=== PATIENT | female | born 1990 | race Caucasian/White ===

== ENCOUNTER 2020-06-29 06:08 | Inpatient (IN) ==
[2020-06-29] MEDS ORDERED: LIDOCAINE HCL 50 ML VIAL PERI PRN (06:17)
[2020-06-29] MEDS ORDERED: OXYTOCIN/0.9 % SODIUM CHLORIDE 30 UNITS/500 ML BAG IV ONE ×2 (06:17→19:11)
[2020-06-29] MEDS ORDERED: RINGER'S SOLUTION,LACTATED 1,000 ML IV ONE (06:17)
[2020-06-29] MEDS ORDERED: BUTORPHANOL TARTRATE 2 MG/ML VIAL IV PRN ×2 (06:17)
[2020-06-29] MEDS ORDERED: ONDANSETRON 4 MG TAB.RAPDIS PO PRN (06:17)
[2020-06-29] MEDS: RINGER'S SOLUTION,LACTATED 1,000 ML IV PRN ×2 (07:00→14:35)
--- NOTE | 2020-06-29 08:19 | HP ---
Chief Complaint - Chief Complaint Date of Service: 06/29/20 Time of Service: 08:18 Chief Complaint: Medical IOL due to post dates History of Present Illness: 30 year old at 40w 4d who presented to L&D for a medical IOL due to post due date. She reports ctx on pitocin. Denies vb or lof. Fetus is active. Medical History (Last Reviewed 06/29/20 @ 14:28 by Josephine Lockett MD) Acne History of PCOS Varicose vein of leg IUGR (intrauterine growth restriction) delivered at 37 weeks-MIOL Insulin resistance Surgical History: Surgical History (Last Reviewed 06/29/20 @ 14:28 by Josephine Lockett MD) No pertinent past surgical history Family History: Family History (Last Reviewed 06/29/20 @ 14:28 by Josephine Lockett MD) Mother Hypertension Grandfather Cancer colon Father Heart disease tachycardia Social History: (Last Reviewed 06/29/20 @ 14:28 by Josephine Lockett MD) Social History: adopted: No Marital status: household members: spouse current occupational status: unemployed current occupation: homemaker Highest level of school completed/degree received: high school graduate Service: No Tobacco: Smoking Status: Never smoker Alcohol: alcohol intake: current alcohol intake frequency: a few times a week details: none with Substance Use: substance use type: does not use Review Of Systems (GEN) - Review of Systems Generalized/Overall Review: Present: No Symptoms Reported Misc: All systems neg except as marked Allergies/Adverse Reactions: Allergies Allergy/AdvReac Type Severity Reaction Status Date / Time No Known Allergies Allergy Verified 06/20/20 10:30 Home Medications: HOME MEDICATIONS Vit No.128/Iron/FA [ Formula] 1 ea PO DAILY 10/07/13 [Last Taken 06/28/20 12:00] metformin 1,000 mg 24 hr tablet,extended release 1,000 mg PO DAILY tab 12/22/19 [Last Taken 06/28/20 12:00] ferrous sulfate 300 mg (60 mg iron)/5 mL oral liquid 60 mg PO DAILY 03/20/20 [Last Taken Unknown] Exam - Exam Vital Signs: 37 84 99% 127/75 18 Constitutional: Present: Alert, Oriented x3, Cooperative ENT Exam: Present: hearing grossly normal Eye Exam: bilateral eye: normal inspection Breasts: Present: Exam deferred Respiratory: Present: lungs clear, normal breath sounds, no respiratory distress Cardiovascular/Chest: Present: regular rate, rhythm Abdomen: Present: soft, nontender, nondistended /Rectal: Present: Exam deferred Extremity: Present: non-tender, no calf tenderness Skin Exam: Present: normal color, warm/dry, no cyanosis Neurologic: Present: alert, normal mood/affect, oriented x 3 Appearance: Present: appropriate appearance, appropriate insight, neat, no memory impairment Eye contact: Present: cooperative, good eye contact, normal speech Thoughts: Present: normal thought pattern Diagnostic Studies: Laboratory Results Blood Type B Positive 06/29/20 06:30 Antibody Screen Negative 06/29/20 06:30 Assessment/Plan - Narrative Narrative: 30 year old at 40w 4d 1. Medical IOL: on pitocin, allow for spontaneous AROM per patient request 2. GBS negative: prophylaxis not indicated - Assessment/Plan (1) Encounter for planned induction of labor Problem: Acute (2) 40 weeks gestation of Problem: Acute
[2020-06-29] MEDS ORDERED: ONDANSETRON HCL/PF 2 MG/ML VIAL IV ONE (13:37)
[2020-06-29] MEDS ORDERED: NALOXONE HCL 1 MG/1 ML SYRG IV PRN (16:24)
[2020-06-29] MEDS ORDERED: BUPIVACAINE HCL/0.9 % NACL/PF 250 ML EP PRN (16:24)
[2020-06-29] MEDS ORDERED: ONDANSETRON HCL/PF 2 MG/ML VIAL IV PRN (16:24)
[2020-06-29] MEDS ORDERED: fentaNYL CITRATE/PF 50 MCG/ML AMPUL IT SCH (16:30)
--- NOTE | 2020-06-29 16:30 | ANES ---
Anesthesia Pre Procedure Eval Vitals/Labs: Last Vital Signs Temp 37.0 C 06/29/20 06:15 Pulse 84 06/29/20 06:15 Resp 18 06/29/20 06:15 BP 127/75 06/29/20 06:15 Pulse Ox 98 06/29/20 06:15 HOME MEDICATIONS Vit No.128/Iron/FA [ Formula] 1 ea PO DAILY 10/07/13 [Last Taken 06/28/20 12:00] metformin 1,000 mg 24 hr tablet,extended release 1,000 mg PO DAILY tab 12/22/19 [Last Taken 06/28/20 12:00] ferrous sulfate 300 mg (60 mg iron)/5 mL oral liquid 60 mg PO DAILY 03/20/20 [La st Taken Unknown] Allergies/Adverse Reactions: Allergies Allergy/AdvReac Type Severity Reaction Status Date / Time No Known Allergies Allergy Verified 06/20/20 10:30 - Planned Procedure Planned Procedure: medical induction for post dates 40+4 Medication List Reviewed:: Yes Allergies Verified: Yes Medical History (Last Reviewed 06/29/20 @ 16:29 by Veto Knox CRNA) Acne History of PCOS Varicose vein of leg IUGR (intrauterine growth restriction) delivered at 37 weeks-MIOL Insulin resistance Surgical History (Last Reviewed 06/29/20 @ 16:29 by Veto Knox CRNA) No pertinent past surgical history Family History (Last Reviewed 06/29/20 @ 16:29 by Veto Knox CRNA) Mother Hypertension Grandfather Cancer colon Father Heart disease tachycardia - Family Anesthesia History Family History:: no untoward family reactions to anesthesia, no familial bleeding tendencies, no family history of clotting disorders, no family history of premature - Airway/Neck/Teeth Within Normal Limits:: Yes Teeth Condition: intact Neck Exam: full range of motion Mallampatti Score: 2 Thyromental (T-M) distance: > 6 cm Mandibulo Hyoid distance: > 3 cm - Respiratory Respiratory Physical: lungs clear Smoking Status: Never smoker Sleep Apnea currently treated: No Sleep Apnea by current assessment: No - Cardiovascular Tolerate Activity: Fair Heart Sounds: S1 & S2, Regular - Gastrointestinal NPO since: 2400 - Anesthesia Assessment and Plan ASA Class: PS, II, E Anesthesia Type Plan: Epidural - CSE for labor analgesia
--- NOTE | 2020-06-29 16:51 | ANES ---
Post Anesthesia Discharge - Transfer of Care Transfer of Care handoff given to nurse: Yes - Discharge from PACU Discharge from PACU when meets criteria: Yes - Comfortable post CSE
--- NOTE | 2020-06-29 16:53 | ANES ---
Anesthesia Procedure Note Procedure Note: ANESTHESIA PROCEDURE NOTE Date of Procedure: 06/29/2020 Time of procedure: 1630. Performed by: HOMERO Preciado CRNA, MSN Track Car Operator: Celeste Butts RN. Preprocedure diagnosis: Active labor, labor pain. Post procedure diagnosis: Same. Procedure:Epidural for labor analgesia L3-4. Indications: Labor pain. Findings: See below. Details of the procedure: The patient was placed on the side of the bed in sitting positionand prepped with DuraPrep then draped in a sterile fashion. Lidocaine 1% was infiltrated to the skin and subcutaneous tissues at the level of the L3-4 interspace. An 18-gauge Touhy needle was used to approach the epidural space with loss of resistance technique. Once loss of resistance was achieved a 27-gauge spinal needle was passed through the epidural needle and CSF was contacted. After CSF returned, 20 mcg of fentanyl was injected in the spinal needle was removed the epidural catheter was then threaded approximately 4 cm in the epidural needle was removed. The catheter was taped in place and after careful aspiration 3 mL of 1.5% lidocaine with 1-200,000 epinephrine was injected without change in maternal heart rate or sensorium. . EBL: Minimal. Fluids: N/A. Specimen: N/A. Post procedure condition: The patient tolerated the procedure well with good relief. No complications were noted. Thank you for this consultation. Veto Knox CRNA, HOMERO, MSN
--- NOTE | 2020-06-29 17:33 | PN ---
Demond Note - Interim Date: 06/29/20 Time: 17:31 Narrative: 06/29/20 17:31 Patient comfortable with epidural cvx /-2 AROM for clear fluid NST cat 1
--- NOTE | 2020-06-29 17:45 | ANES ---
Post Anesthesia Assessment - Vital Signs Vitals: Last Vital Signs Temp 37.0 C 06/29/20 06:15 Pulse 84 06/29/20 06:15 Resp 18 06/29/20 06:15 BP 127/75 06/29/20 06:15 Pulse Ox 98 06/29/20 06:15 Airway Patency: Normal - Mental Status Level Of Consciousness: Awake, Alert, Appropriate - Pain Level Pain Score: 0 - N/V Assessment Nausea/Vomiting Presence: None Dehydration:: No
[2020-06-29] MEDS ORDERED: HYDROCORTISONE 30 APPL TUBE TP PRN (19:11)
[2020-06-29] MEDS ORDERED: HYDROcodone/ACETAMINOPHEN 1 EACH TABLET PO PRN ×2 (19:11)
[2020-06-29] MEDS ORDERED: BISACODYL 10 MG SUPP.RECT RC PRN (19:11)
[2020-06-29] MEDS ORDERED: GLYCERIN/WITCH HAZEL LEAF 40 APPL BOX TP PRN (19:11)
[2020-06-29] MEDS ORDERED: diphenhydrAMINE HCL 25 MG CAPSULE PO PRN (19:11)
[2020-06-29] MEDS ORDERED: SENNOSIDES 8.6 MG TABLET PO PRN (19:11)
[2020-06-29] MEDS ORDERED: BENZOCAINE/MENTHOL 81 SPRAY CAN TP PRN (19:11)
--- NOTE | 2020-06-29 19:14 | OR ---
Operative Report - Dictated Report Narrative: Date of delivery: 06/29/2020 Time of delivery: 185 Gender: male APGARS: 7/8 weight: 4021 grams Procedure: Description of the procedure: The patient progressed to complete dilation. After delivery of the head the shoulders did not deliver with gentle downward traction consistent with a shoulder dystocia. The Flower manuever was performed and that did not lead to delivery. Suprapubic pressure was applied and that resulted in delivery of the anterior shoulder. The rest of the was delivered atraumatically. The infant was moving all extremities after delivery. The dystocia lasted 55 seconds. Cord clamping was delayed for 60 seconds due to vigorous . Cord blood was collected. The placenta delivered by expression, intact, and without difficulty. EBL: 200 mL Lacerations: none Complications: none Specimen: cord blood History for Definition: * The number of deliveries resulting in a live the patient experienced prior to current hospitalization * The previous delivery of live twins or any live multiple gestation is considered one live event. *If primagravida or nulliparous is documented select zero for the number of previous live births. Live Events: 6
[2020-06-29] MEDS: IBUPROFEN 800 MG TABLET PO PRN (19:16)
[2020-06-29] MEDS: DOCUSATE SODIUM 100 MG CAPSULE PO SCH (21:59)
[2020-06-30] MEDS: DOCUSATE SODIUM 100 MG CAPSULE PO SCH ×3 (00:10→21:11)
[2020-06-30] MEDS: IBUPROFEN 800 MG TABLET PO PRN ×2 (03:44→11:02)
--- NOTE | 2020-06-30 07:49 | PN ---
Subjective - Date and Time Seen Date: 06/30/20 Time: 07:46 Subjective Narrative: Patient without complaints Objective Objective Narrative: See vital signs - Review of Systems Misc: All systems neg except as marked - Vitals Vitals: Last Vital Signs Temp 36.7 C 06/30/20 00:15 Pulse 83 06/30/20 00:15 Resp 18 06/30/20 00:15 BP 120/59 06/30/20 00:15 Pulse Ox 97 06/30/20 00:15 - Exam Constitutional: Present: Alert, Oriented x3, Cooperative, No distress ENT Exam: Present: hearing grossly normal Neck: Present: normal inspection Abdomen: Present: soft, nontender, nondistended /Rectal: Present: Exam deferred Extremity: Present: non-tender, no calf tenderness Skin Exam: Present: normal color, warm/dry, no cyanosis Neurologic: Present: alert, normal mood/affect, oriented x 3 Appearance: Present: appropriate appearance, appropriate insight, neat, no memory impairment Eye contact: Present: cooperative, good eye contact, normal speech Thoughts: Present: normal thought pattern Cauti Physician Documentation - Urinary Catheter Management Urethral ([place] Rosa) Urethral Indwelling: No Date of Insertion: 06/29/20 Time of Insertion: 17:15 Date of Removal: 06/29/20 Time of Removal: 18:45 Assessment/Plan Plan Narrative: PPD 1 s/p Doing well Discharge tomorrow - Problems/Diagnosis (1) Encounter for planned induction of labor Problem: Acute (2) 40 weeks gestation of Problem: Acute
[2020-06-30] MEDS: PRENATAL VITS96/IRON FUM/FOLIC 1 TAB TABLET PO SCH (09:24)
[2020-06-30] MEDS ORDERED: ACETAMINOPHEN 500 MG TABLET PO PRN (16:26)
[2020-07-01] MEDS: IBUPROFEN 800 MG TABLET PO PRN ×2 (00:37→09:38)
[2020-07-01 08:16] VITALS: BP 112/80
--- NOTE | 2020-07-01 08:42 | PN ---
Subjective - Date and Time Seen Date: 07/01/20 Time: 08:40 Subjective Narrative: Patient without complaints Objective Objective Narrative: See vital signs - Review of Systems Generalized/Overall Review: Reports: No Symptoms Reported Misc: All systems neg except as marked - Vitals Vitals: Last Vital Signs Temp 36.6 C 07/01/20 07:15 Pulse 70 07/01/20 07:15 Resp 18 07/01/20 07:15 BP 112/80 07/01/20 07:15 Pulse Ox 98 07/01/20 07:15 - Exam Constitutional: Present: Alert, Oriented x3, Cooperative, No distress ENT Exam: Present: hearing grossly normal Extremity: Present: non-tender, no calf tenderness Skin Exam: Present: normal color, warm/dry, no cyanosis Neurologic: Present: alert, normal mood/affect, oriented x 3 Appearance: Present: appropriate appearance, appropriate insight, neat, no memory impairment Eye contact: Present: cooperative, good eye contact, normal speech Thoughts: Present: normal thought pattern Cauti Physician Documentation - Urinary Catheter Management Urethral ([place]) Urethral Indwelling: No Date of Insertion: 06/29/20 Time of Insertion: 17:15 Date of Removal: 06/29/20 Time of Removal: 18:45 Assessment/Plan Plan Narrative: PPD 2 s/p Doing well Discharge today - Problems/Diagnosis (1) Encounter for planned induction of labor Problem: Acute (2) 40 weeks gestation of Problem: Acute
--- NOTE | 2020-07-01 08:43 | DS ---
OB Discharge Summary (1) Encounter for planned induction of labor Status: Acute (2) 40 weeks gestation of Status: Acute Delivery Date: 06/29/20 Delivery Time: 18:52 :: 8 Para:: 8 Gestational weeks:: 40 Gestational days:: 4 Intrapartum Procedures: Spontaneous Vaginal Delivery, Anesthesia - Epidural Procedures: None /OP Complications: No Complications Discharge Diagnosis: Term -Delivered - Discharge Information Date of Discharge: 07/01/20 Hospital Course: The patient presented for a medical IOL due to post due date. Delivery was complicated by shoulder dystocia. course was uncomplicated. Discharge Location: Home Disposition: Home self-care Activity on Discharge:: Activity as tolerated, Pelvic Rest Discharge Diet: General/regular food Additional Patient Instructions (free text): Marybeth cruz six week follow up appointment is on August 10 at 3:00 PM with . Anupam's follow up appointment is on 07/04/23 at 3:00 PM with Jaja Beckett [employer]. Complete Home Medications List: Complete Home Medication List: Vit No.128/Iron/FA [Eql Vitamin Tablet] 1 ea PO DAILY 10/07/13 metformin 1,000 mg 24 hr tablet,extended release 1,000 mg PO DAILY tab 12/22/19 - Plan Discharge to:: Home Comment:: Routine Discharge Instructions Follow up in office in:: Other - 4 weeks - [place] Information Weight (Grams): 4,021 Sex: Male Score 1 min: 7 Score 5 min: 8 Infant Complications: Shoulder Dystocia
[2020-07-01] MEDS: DOCUSATE SODIUM 100 MG CAPSULE PO SCH (09:38)
[2020-07-01] MEDS: PRENATAL VITS96/IRON FUM/FOLIC 1 TAB TABLET PO SCH (09:49)
== END 2020-07-01 14:05 | disposition home or self-care (01) | DRG 807 ==
LOC: OB 06:08
PROVIDERS: ADMIT Obstetrics & Gynecology; ATTEND Obstetrics & Gynecology